=== PATIENT | male | born 1990 | race Two or more races ===

== ENCOUNTER 2023-04-09 22:36 | Emergency (ER) | payer MEDICAID ==
[~2023-04-09] VITALS: Ht 170.2 cm; Wt 81.6 kg
[2023-04-09 23:37] VITALS: BP 111/74; TEMP 98
[2023-04-10] MEDS ORDERED: DIPHENHYDRAMINE HCL 12.5 MG/5 ML UDC PO ONE (00:30)
[2023-04-10] MEDS ORDERED: cetrizine 10 MG TABLET PO ONE (00:30)
[2023-04-10] MEDS ORDERED: cetrizine 10 MG TABLET ONE (00:47)
[2023-04-10] MEDS ORDERED: diphenhydrAMINE HCL 25 MG CAPSULE ONE (00:47)
[2023-04-10 00:51] VITALS: O2SAT 98
== END 2023-04-10 00:52 | disposition home or self-care (01) ==
LOC: ER 22:39
DX: T22.40XA Corrosion of unspecified degree of shoulder and upper limb, except wrist and hand, unspecified site, initial encounter (principal); Y93.89 Activity, other specified; Y92.89 Other specified places as the place of occurrence of the external cause; Y99.8 Other external cause status
CPT/HCPCS: 99283; Q0163 ×2